=== PATIENT | male | born 1970 | race American Indian/Alaskan Native ===

== ENCOUNTER 2018-02-03 07:56 | Outpatient (CLI) | payer OTHER ==
--- NOTE | 2018-02-04 13:50 | Nuclear Medicine Report ---
NUCLEAR MEDICINE THYROID UPTAKE MULTIPLE NEW HISTORY: Complex thyroid nodule. FINDINGS: Scintigraphic images of the thyroid gland demonstrate no evidence for hot or cold nodule. 5 hour uptake measures 9.2%. Normal range 4-18%. 28 hour uptake measures 16.7%. Normal range 18-36%. IMPRESSION: No focal is identified on nuclear medicine. 28 hour uptake is slightly decreased as noted above.
== END 2018-02-03 07:57 | disposition home or self-care (01) ==
LOC: NM 07:56
PROVIDERS: ATTEND Internal Medicine
DX: E04.1 Nontoxic single thyroid nodule (principal); I12.9 Hypertensive chronic kidney disease with stage 1 through stage 4 chronic kidney disease, or unspecified chronic kidney disease; E11.22 Type 2 diabetes mellitus with diabetic chronic kidney disease; N18.9 Chronic kidney disease, unspecified; E66.9 Obesity, unspecified; E07.9 Disorder of thyroid, unspecified; N40.0 Benign prostatic hyperplasia without lower urinary tract symptoms; H52.4 Presbyopia; R04.0 Epistaxis
CPT/HCPCS: 78012; A9516

== ENCOUNTER 2018-04-08 07:38 | Day surgery (SDC) | payer OTHER ==
--- NOTE | 2018-04-08 10:15 | Short Stay Summary ---
Short Stay Documentation Date of service: 04/08/18 - History Principal diagnosis: right thyroid nodule H&P: obtained from office - Allergies and Medications Current Medications: Allergies No Known Allergies Allergy (Verified 04/08/18 08:20) - Physical exam General appearance: no acute distress HEENT: Atraumatic, PERRLA, Mucous membr. moist/pink - Brief post op/procedure progress note Date of procedure: 04/08/18 Pre-op diagnosis: right thyroid nodule Post-op diagnosis: same Procedure: US thyoid biopsy/fna Anesthesia: local Findings: 1.6cm solitary right thyroid nodule Surgeon: STEFFANIE POND Estimated blood loss: none Pathology: list (FNA x 2) Condition: stable - Disposition Condition at discharge: Good Disposition: DC-01 TO HOME OR SELFCARE Short Stay Discharge Plan Follow up with: KYLIE SHELTON MD [Primary Care Provider] - 7 Days
--- NOTE | 2018-04-08 10:25 | Ultrasound Report ---
ULTRASOUND BIOPSY THYROID History: Thyroid nodule. Description of procedure: Informed consent was obtained. Sterile technique was utilized. 1% lidocaine for skin anesthesia. Using ultrasound guidance, 2 fine needle aspirations were obtained from a solitary 1.6 cm nodule in the inferior right thyroid lobe. The samples were deemed adequate by the pathologist on site. No complications. Impression: Successful ultrasound guided fine needle aspiration of the right thyroid nodule.
[2018-04-08 10:32] VITALS: BP 159/100
== END 2018-04-08 10:46 | disposition home or self-care (01) ==
LOC: CATHLABREC 07:38
PROVIDERS: ATTEND Internal Medicine
DX: D34 Benign neoplasm of thyroid gland (principal)
CPT/HCPCS: 10022; 60100; 76942; 88112; 88172; 88173; 88305